=== PATIENT | female | born 1950 | race Caucasian/White ===

== ENCOUNTER → 2017-03-14 | Day surgery (SDC) | payer OTHER ==
--- NOTE | 2017-03-13 14:27 | MH ---
cc: Winsome DARDEN M.D. DATE OF ADMISSION: 03/14/2017 ADMISSION DIAGNOSIS Painful right hip from trochanteric bursitis and osteophyte, now being admitted for removal of the osteophyte right greater trochanter. PAST MEDICAL HISTORY 1. Anxiety. 2. Arthritis. 3. Hypertension. 4. Kidney stones. 5. Back pain. 6. Neck pain. 7. Sciatica. 8. Stomach ulcers. CURRENT MEDICATIONS 1. Voltaren, stop before surgery. 2. Pantoprazole. 3. Acetaminophen. 4. Aspirin. 5. Tumeric. 6. Joint support. 7. Vitamins. 8. Probiotic. PAST SURGICAL HISTORY 1. Total hips, both sides. 2. Right total knee x2. 3. Tonsillectomy. 4. Appendectomy. 5. Right hand carpal tunnel release. 6. Left elbow surgery. 7. Cholecystectomy. SOCIAL HISTORY She does not smoke or drink. REVIEW OF SYSTEMS Noncontributory. FAMILY HISTORY Noncontributory. ALLERGIES She has allergies to MOBIC, CELEBREX, CIPRO, MORPHINE AND XARELTO. PHYSICAL EXAMINATION GENERAL: We find a 66-year-old female, well-developed, well-nourished, oriented x3, complaining of pain in her right hip. VITAL SIGNS: Blood pressure 122/80, pulse 80 and regular, respirations 18, temperature 98.2, pulse oximetry 97% on room air. HEENT: Eyes PERRLA, EOMI. Ears, nose, mouth clear. NECK: Supple. LUNGS: Clear. HEART: Regular rate. ABDOMEN: Soft. Positive bowel sounds, nontender. EXTREMITIES: Reveal the right hip to be exquisitely tender over the greater trochanter. IMPRESSION AT THIS TIME Trochanteric bursitis right hip from large osteophyte. PLAN Admission for removal of the osteophyte right hip today. The patient given a prescription for postoperative pain control in the office. Understands to use Hibiclens scrub and Bactroban preoperatively. MD SATNAM Rivera/THOMASL /2:01 PM /2:14 PM
[~2017-03-14] VITALS: Ht 165.1 cm; Wt 97.4 kg
[~2017-03-14] MED LIST: ACETAMINOPHEN 1000 MG/100 ML 100 ML IV ONE; ACETAMINOPHEN/HYDROcodone 325 MG/5 MG TAB PO PRN; ASPI-110 PO; CHLORHEXIDINE GLUCONATE 2 % 1 PACK (2 CLOTHS) TOPICAL PRN; DEXAMETHASONE SOD PHOS 4 MG/ML VIAL IV ONE; DO NOT ADM ANY ANTICOAGULANT DRUGS PRN; FAMOTIDINE 20 MG/2 ML VIAL ONE; GENTAMICIN SULFATE 80 MG/2 ML VIAL ONE; GLUC500T4 PO; GLYCOPYRROLATE 1 MG/5 ML SYRINGE IV PUSH ONE; INSULIN HUMAN REGULAR 1,000 UNITS/10 ML VIAL SQ PRN; LACTATED RINGER'S 1000 ML IV PRN; LIDOCAINE HCL 1% PF 5 ML AMPULE OTHER ONE; MEPERIDINE HCL 25 MG/ML VIAL ONE; MEPERIDINE HCL 50 MG/ML VIAL IM PRN; MEPERIDINE HCL 50 MG/ML VIAL ONE; METOPROLOL TARTRATE 25 MG TAB PO PRN; MIDAZOLAM HCL 2 MG/2 ML VIAL IV ONE; NEOSTIGMINE 3 MG/3 ML SYR IV ONE; ONDANSETRON HCL 4 MG/2 ML VIAL IV PUSH ONE; ONDANSETRON ODT 4 MG TAB PO PRN; PANT40TA3 PO; POVIDONE IODINE 5% (ANTISEPSIS KIT) 4 APPLICATIONS EACH NARE PRN; POVIDONE IODINE 7.5% SCRUB 118 ML BOTTLE TOPICAL SCH; PROPOFOL 200 MG/20 ML AMP IV ONE; ROCURONIUM INJ 50 MG/5 ML SYRINGE IV PUSH ONE; SACC1CAP3 PO; SODIUM CHLORID 0.9% 500 ML IV PRN; TURM500C4 PO; TYLE325T PO; VOLT1GEL4 TP; ceFAZolin 2 GM PREMIX 50 ML IV SCH; ePHEDrine/NS 25 MG/5 ML SYR IV ONE
--- NOTE | 2017-03-14 11:32 | HHI.PR ---
Immediate Post Op Note Procedure Date: Mar 14, 2017 Pre Op Diagnosis: Painful right hip from trochanteric bursitis and osteophyte Post Op Diagnosis: Painful right hip from trochanteric bursitis and osteophyte Surgeon: Winsome Ferreira MD Film Booker(s): Judy CAMARENA Procedure: Excision of the osteophyte right greater trochanter. Specimen(s) removed: osteophyte right greater trochanter. Estimated blood loss: 20cc Anesthesia: General Drains: None IVF Urinary Output (mLs): 0 (no nunez) Tourniquet time (min at mmHg) none Patient to: PACU Patient Condition: Good Implant/Devices: SEE IMPLANT LOG (if applicable) Date/Time of Procedure: SEE SURGICAL CARE RECORD Judy Mott Mar 14, 2017 11:25
--- NOTE | 2017-03-14 12:06 | RADRPT ---
EXAM DATE/TIME: 03/14/2017 10:17 [facility] COMPARISON: No previous studies available for comparison. INDICATIONS : Osteophyte removal right hip MEDICAL HISTORY : Osteoarthritis. SURGICAL HISTORY : Total right hip ENCOUNTER: Initial ACUITY: 1 day PAIN SCORE: Non-responsive. LOCATION: Right hip FINDINGS: 2 images recorded digitally in the operating room using C-arm during a procedure. On image #1, a loca lization probe is seen lateral to the proximal femoral trochanter. Total hip arthroplasty in place.. CONCLUSION: Intraoperative images. Meng Reynaga MD on March 14, 2017 at 12:03 Board Certified Radiologist. This report was verified electronically.
--- NOTE | 2017-03-14 12:28 | MP ---
cc: Winsome FERREIRA M.D. DATE OF SURGERY 03/14/2017 PREOPERATIVE DIAGNOSIS Painful osteophyte right hip greater trochanter POSTOPERATIVE DIAGNOSIS Painful osteophyte right hip greater trochanter SURGERY PERFORMED Excision of osteophyte from right greater trochanter of her right hip. SURGEON Dr. Ferreira COMPRESSOR MECHANIC NICOL Fraser ANESTHESIA General intubation PROCEDURE The patient brought to the operating room, placed on the operating table in the supine position. After successful induction of general anesthesia, the patient was placed in the left lateral decubitus position. The right hip and thigh were prepped and draped in the usual manner. Then a 3 inch incision was then made through the distal end of the total hip incision along the greater trochanter, carried down to subcutaneous tissue through the deep fascia to expose the osteophyte over the greater trochanter which was removed using osteotome, rongeur and smoothed with a rasp. An x-ray by fluoroscopy revealed successful removal of the osteophyte. The osteophyte was sent to pathology for evaluation. The wound irrigated copiously with antibiotic solution. Meticulous hemostasis achieved. The deep fascia approximated with running #1 Vicryl suture. Subcutaneous tissue approximated using interrupted running 2-0 and 3-0 Monocryl suture and Steri-Strips and a sterile dressing. ESTIMATED BLOOD LOSS 10 cc. COUNTS Sponge and suture counts correct. CONDITION The patient of procedure well left the operating room in satisfactory condition. NICOL Fraser was present during the entire procedure to include patient positioning and the procedure. The medical necessity of a nurse practitioner as office support assistant was indicated in this case due to the surgical complexity of the case itself. During the surgical case, the surgical elastic knitter hand frame was working the back table while my surgical elastic knitter hand frame NICOL was directly assisting me. MD SATNAM Rivera/ANDREE /11:12 AM /12:15 PM
[2017-03-14 13:30] VITALS: BP 103/66; PULSE 84; RESP 16; TEMP 96.7; O2SAT 97
--- NOTE | 2017-03-14 15:02 | EKG ---
Date Performed: 03/14/2017 Time Performed: 07:19:27 PTAGE: 66 years EKG: Sinus rhythm NONSPECIFIC T-WAVE ABNORMALITY ABNORMAL ECG PREVIOUS TRACING : 10/10/2015 09.45 Compared to prior tracing no significant change DOCTOR: William Payan Interpretating Date/Time 03/14/2017 15:00:52
== END | disposition home or self-care (01) ==
LOC: HSDC 06:56
PROVIDERS: ATTEND Surgery
DX: M25.751 Osteophyte, right hip (principal); M70.61 Trochanteric bursitis, right hip; I10 Essential (primary) hypertension; Z87.442 Personal history of urinary calculi; Z87.19 Personal history of other diseases of the digestive system; Z01.810 Encounter for preprocedural cardiovascular examination
CPT/HCPCS: 01230; 27355; 73501; 76000; 88304; 88311; 93005; J0131; J0690; J1100; J1580; J2175; J2250; J2405; J2710; J3010; J7120; 88305